=== PATIENT | male | born 1980 | race Caucasian/White ===

== ENCOUNTER 2016-09-28 09:34 | Day surgery (SDC) | payer MEDICAID ==
[2016-09-21 12:48] LABS: ABSOLUTE BASOPHILS # (AUTO) 0.1 10^3/uL (0.0-0.2); ABSOLUTE EOSINOPHILS # (AUTO) 0.2 10^3/uL (0.0-0.6); ABSOLUTE LYMPHOCYTES (AUTO) 2.9 10^3/uL (0.5-4.7); ABSOLUTE MONOCYTES (AUTO) 0.6 10^3/uL (0.1-1.4); ABSOLUTE NEUT (AUTO) 3.9 10^3/uL (1.7-8.2); BASOPHILS % (AUTO) 1.2 % (0-2); HEMATOCRIT 42.5 % (37.9-51.0); HEMOGLOBIN 14.5 g/dL (13.5-17.0); LYMPHOCYTES % (AUTO) 37.3 % (13-45); MEAN CORPUSCULAR HEMOGLOBIN 28.4 pg (27.0-33.4); MEAN CORPUSCULAR HGB CONC 34.1 g/dL (32.0-36.0); MEAN CORPUSCULAR VOLUME 83 fl (80-97); MONOCYTES % (AUTO) 8.1 % (3-13); RED CELL DISTRIBUTION WIDTH 18.1 % (11.5-14.0); SEGMENTED NEUTROPHILS % (AUTO) 50.4 % (42-78); WHITE BLOOD COUNT 7.8 10^3/uL (4.0-10.5)
[2016-09-21 12:49] LABS: APPEARANCE,URINE CLEAR; BILIRUBIN,URINE NEGATIVE (NEGATIVE); GLUCOSE, URINE NEGATIVE (NEGATIVE); KETONES,URINE NEGATIVE (NEGATIVE); LEUKOCYTE ESTERASE,URINE NEGATIVE (NEGATIVE); NITRITE,URINE NEGATIVE (NEGATIVE); PROTEIN,URINE NEGATIVE (NEGATIVE); URINE SPECIFIC GRAVITY 1.014; UROBILINOGEN,URINE NEGATIVE mg/dL (<2.0)
[2016-09-21 13:04] LABS: ANION GAP 10 (5-19); BLOOD UREA NITROGEN 10 mg/dL (7-20); CALCIUM 9.5 mg/dL (8.4-10.2); CARBON DIOXIDE 30 mmol/L (22-30); CHLORIDE 104 mmol/L (98-107); CREATININE RESULT 0.71 mg/dL (0.52-1.25); GLUCOSE 92 mg/dL (75-110); POTASSIUM 4.8 mmol/L (3.6-5.0); SODIUM 143.8 mmol/L (137-145)
--- NOTE | 2016-09-21 20:26 | EKG REPORT ---
SEVERITY:- NORMAL ECG - SINUS RHYTHM : Confirmed by: Dyllan Garza 21-Sep-2016 20:25:04
[~2016-09-28 09:34] MED LIST: BUPIVACAINE HCL 0.5 % INJ/PF 30 ML SDV ONE; DEXAMETHASONE SOD PHOSPHATE INJ 4 MG/1 ML VIAL ONE; GLYCOPYRROLATE INJ 0.4 MG/2 ML VIAL ONE; LACTATED RINGERS 1000 ML IV PRN; LIDOCAINE 2% INJ-PF (20 MG/ML) 10 ML AMPUL ONE; NEOSTIGMINE METHYLSULFATE 10 MG/10 ML VIAL ONE; ONDANSETRON HCL INJ/PF 4 MG/2 ML SDV ONE; PHENYLEPHRINE HCL INJ/PF 10 MG/1 ML SDV ONE; ROCURONIUM BROMIDE INJ 50 MG/5 ML VIAL IV ONE; SUCCINYLCHOLINE CHLORIDE INJ 200 MG/10 ML VIAL ONE; VANCOMYCIN HCL 1,000 MG in DEXTROSE 5%-WATER 250 ML IV PRN
[2016-09-28] MEDS ORDERED: ACETAMINOPHEN 100 ML IV ONE (12:13)
[2016-09-28] MEDS ORDERED: PROPOFOL INJ 200 MG/20 ML VIAL IV ONE (12:13)
[2016-09-28] MEDS ORDERED: MIDAZOLAM 2 MG/2 ML INJ ONE (12:13)
[2016-09-28] MEDS ORDERED: FENTANYL CITRATE INJ/PF 250 MCG/5 ML AMPULE ONE (12:13)
[2016-09-28] MEDS ORDERED: FENTANYL CITRATE INJ/PF 100 MCG/2 ML AMPUL ONE (12:13)
[2016-09-28] MEDS ORDERED: MORPHINE SULFATE 10 MG/ML INJ ONE (12:14)
[2016-09-28] MEDS ORDERED: HYDROMORPHONE HCL INJ/PF 2 MG/ML AMPULE ONE (12:58)
[2016-09-28] MEDS ORDERED: DIPHENHYDRAMINE HCL 50 MG/ML VIAL IV PRN (13:42)
[2016-09-28] MEDS ORDERED: PROMETHAZINE HCL INJ 25 MG/1 ML VIAL IV PRN ×2 (13:42)
[2016-09-28] MEDS ORDERED: MEPERIDINE HCL/PF INJ 25 MG/1 ML DISP.SYRIN IV PRN (13:42)
[2016-09-28] MEDS ORDERED: FENTANYL CITRATE INJ/PF 100 MCG/2 ML AMPUL IV PRN ×3 (13:42)
[2016-09-28] MEDS ORDERED: OXYCODONE-ACETAMINOPHEN 5-325 MG TABLET PO PRN (16:22)
[2016-09-28] MEDS ORDERED: HYDROMORPHONE HCL INJ/PF 2 MG/ML AMPULE IV PRN (16:22)
--- NOTE | 2016-09-28 16:22 | PDOC DISCHARGE SUMMARY ---
Discharge Summary (SDC) - Discharge Final Diagnosis: Radial Nerve Palsy Date of Surgery: 09/28/16 Discharge Date: 09/28/16 Condition: Good Treatment or Instructions: Schedule Follow Up w/ Dr. Riki Maria @ [facility] for Surgery to be seen in 10-14 days or as scheduled [place]: [place]: [place]: Keep splint clean/dry/intact. Ice and elevate Stool softener of choice when on pain medication. Prescriptions: Oxycodone HCl/Acetaminophen [Percocet 5-325 mg Tablet] 1 - 2 tab PO ASDIR PRN # 45 tablet PRN Reason: Discharge Diet: As Tolerated Respiratory Treatments at Home: Deep Breathing/Coughing Discharge Activity: No Lifting Over 10 Pounds, No Lifting/Push/Pulling Report the Following to Your Physician Immediately: Fever over 101 Degrees, Unusual Bleeding, Redness, Swelling, Warmth, Increased Soreness
--- NOTE | 2016-09-28 16:22 | Operative Report ---
Operative Report DATE OF SURGERY: 09/28/16 PREOPERATIVE DIAGNOSIS: Right Radial Nerve Palsy POSTOPERATIVE DIAGNOSIS: Same + Retained Hardware OPERATION: Radial Nerve Tendon Transfer FCR to EDC, PL to EPL, PT to ECRB, Removal Hardware Right Radial Shaft SURGEON: PATRICIA RAMSAY ANESTHESIA: GA COMPLICATIONS: None ESTIMATED BLOOD LOSS: Minimal PROCEDURE: Indication for above procedure: 36-year-old male who sustained a humeral shaft fracture. He then developed postoperative radial nerve palsy. I attempted radial nerve reconstruction with allograft but up to this point patient has failed to see recovery. Given the chronicity of his injury joint decision was made to proceed with radial nerve tendon transfers. Risks and benefits were explained to the patient, patient verbalized understanding consented for the procedure. Procedure In Detail: Patient was seen and evaluated in the preoperative holding area. The RIGHT upper extremity was initialized and marked. Patient received 2g of Ancef IV for bacterial prophylaxis. Patient was taken back to the operative room where transferred to the operative table and placed under general anesthesia. Once they were adequately anesthetized a nonsterile tourniquet was placed on the upper extremity. A surgical team debriefing was performed ensuring all instrumentation was available, the surgical procedure was discussed with possible concerns reviewed. The upper extremity was prepped with chlorhexidine and alcohol and draped in a sterile fashion. A timeout was done identifying correct patient, procedure and extremity everyone in attendance agree with this and verbalized no concerns. The extremity was exsanguinated the tourniquet was inflated to 250 mmHg. Patient's previous skin incision was utilized dorsally. Blunt dissection was performed through the soft tissues. Superficial radial nerve and radial artery were identified and the interval of the brachioradialis and the ECRL. These were protected throughout the entirety of the case. Patient's previous radius plate was adjacent to the insertion of the pronator teres. Thus it require removal. Screws removed in the plate in its entirety. Previous fracture was healed no evidence of nonunion or instability. I then curetted the screw holes. The pronator teres minor belly was identified and tracked distally at its insertion along the radial shaft. The tendon and periosteum were carefully elevated to allow enough tendon length. Unfortunately because of patient's previous radial shaft plate there was not significant periosteum to elevate. Thus a strip of the ECRL was utilized. This was sewn into the pronator teres tendon with a running Krackow suture utilizing 4-0 FiberWire. I then turned my attention to identification of the additional donor tendons. A volar skin incision was made between the FCR and palmaris longus. The palmar cutaneous branch and median nerve was identified and protected. I then released the FCR and palmaris longus is distally as possible. These were then tunneled through subcutaneous tissues to the dorsal wound. I then proceeded with identification of the recipient tendons. The 4th dorsal compartment was identified. The proximal third of the dorsal retinaculum was released well but the distal two thirds was left to allow protection against bowstringing. The EIP, EDC and EDQ were identified and tagged with a vessel loop. I then sutured the tendons to one another utilizing a 3-0 Ethibond in order to maintain cascade of the digits. EPL tendon was then identified adjacent to Bruno's tubercle and cut at the muscle tendinous junction. A transverse skin incision was made just ulnar to the anatomic snuffbox and the EPL tendon retrieved from the wound. This was then tunneled subcutaneously to the volar wound to allow better palmar abduction. The FCR tendon was then weaved into the index EDC and EIP then secured into position with a 3-0 Ethibond suture. The digits are tensioned in neutral MCP joint extension and the wrist at 20 of extension. This was then completed similarly with the EDC of the middle ring and small finger along with EDQ maintaining tension with flexion of the IP joints and extending the cascade anymore distal direction. An additional two Pulvertaft weaves were completed. With wrist range of motion was appropriate tenodesis and tensioning with wrist flexion and extension. I then turned my attention to the palmaris longus to EPL. EPL had been transposed and under maximal tension of the EPL and palmaris longus with the wrist in neutral position and the thumb and full IP extension and palmar abduction this was secured with a total of 3 Pulvertaft weaves utilizing 3-0 Ethibond suture. Once again with tenodesis was appropriate motion without significant tightening and was able to flex the thumb and adductor towards the adjacent index finger. Finally the pronator teres with the ECRL graft secured the end was Pulvertaft weaved through the ECRB at a 45 angle. Tension was set with the wrist at 45 of extension. Patient's digits rested in a neutral position with the thumb and palmar abduction once the wrist and tendon transfer was complete. I was able to easily flex the wrist down to 20 of flexion after transfer was complete. The wound was then copiously irrigated with normal saline. Tourniquet was deflated. Any peripheral vasculature is quite with bipolar cautery. Subcutaneous tissues were closed with interrupted 3-0 Monocryl suture and skin was closed with running 3-0 nylon suture. 30 mL of 0.5% Marcaine with epinephrine was injected for postoperative pain control. Wound was dressed with Xeroform 4 x 4's and soft roll. Patient was placed in a sugar tong splint with the arm and pronation and a volar splint extending to the IP joints to be the IP joints free. The wrist was placed in 30 of extension with the MCP joints at neutral and a thumb spica addition was placed maintaining palmar abduction and full IP extension. Sponge counts, instrument counts, needle counts counts were correct. Patient was then awoken from anesthesia. Transferred from the operating room table to the operating room stretcher. There was no intraoperative complications patient tolerated procedure well stable to PACU. Postoperative plan: Patient will be set up for occupational therapy 2 weeks postoperatively. At that point he is will be removed and stitches removed. He will be set up for occupational therapy to begin at 2 weeks and will be fitted for a thermoplastic splint between the IP joints free with the MCP joint at neutral and wrist at 20 of extension maintaining thumb radial abduction. The splint will be continued for 2 weeks he will begin exercises postop week #4 and continue the splint during the daytime and at night and remove it only for exercises. At 6 weeks we will begin weaning the splint.
[2016-09-28 18:14] VITALS: BP 153/94
== END 2016-09-28 18:10 | disposition home or self-care (01) ==
LOC: OROUT 09:34
PROVIDERS: ATTEND Orthopaedic Surgery
PROC: [UNRECOGNIZED PROCEDURE] (2016-09-28)
PROC: 0PPH04Z Removal of Internal Fixation Device from Right Radius, Open Approach (ICD-10-PCS; principal; 2016-09-28 11:30)
DX: G56.31 Lesion of radial nerve, right upper limb (principal); S49.90XD Unspecified injury of shoulder and upper arm, unspecified arm, subsequent encounter; S52.90XD Unspecified fracture of unspecified forearm, subsequent encounter for closed fracture with routine healing; M65.819 Other synovitis and tenosynovitis, unspecified shoulder; S42.301K Unspecified fracture of shaft of humerus, right arm, subsequent encounter for fracture with nonunion; S44.21XD Injury of radial nerve at upper arm level, right arm, subsequent encounter; X58.XXXD Exposure to other specified factors, subsequent encounter; F17.210 Nicotine dependence, cigarettes, uncomplicated
CPT/HCPCS: 93005; 36415; 85025; 80048; 81001; 71020; 93010; 20680; 64708; J2250; J3490 ×3; J1100; J3010; J1170; J2370; J0330; J2405; J7060; J2704; J3370; J0131; 1710; J2270

== ENCOUNTER 2017-12-20 00:14 | Inpatient (IN) | payer SELFPAY ==
[2017-12-13 09:21] LABS: APPEARANCE,URINE CLEAR; BILIRUBIN,URINE NEGATIVE (NEGATIVE); COLOR,URINE YELLOW; GLUCOSE, URINE NEGATIVE (NEGATIVE); KETONES,URINE NEGATIVE (NEGATIVE); LEUKOCYTE ESTERASE,URINE NEGATIVE (NEGATIVE); NITRITE,URINE NEGATIVE (NEGATIVE); PROTEIN,URINE NEGATIVE (NEGATIVE); URINE SPECIFIC GRAVITY 1.013; UROBILINOGEN,URINE NEGATIVE mg/dL (<2.0)
--- NOTE | 2017-12-13 09:29 | RADIOLOGY REPORT (SQ) ---
EXAM DESCRIPTION: CHEST PA/LATERAL COMPLETED DATE/TIME: 12/13/2017 9:20 am REASON FOR STUDY: PRE-OP COMPARISON: Chest films 01/30/2016, 09/21/2016 EXAM PARAMETERS: NUMBER OF VIEWS: two views TECHNIQUE: Digital Frontal and Lateral radiographic views of the chest acquired. RADIATION DOSE: NA LIMITATIONS: none FINDINGS: LUNGS AND PLEURA: No opacities, masses or pneumothorax. No pleural effusion. MEDIASTINUM AND HILAR STRUCTURES: No masses or contour abnormalities. HEART AND VASCULAR STRUCTURES: Heart normal size. No evidence for failure. BONES: No acute findings. HARDWARE: None in the chest. OTHER: No other significant finding. IMPRESSION: NO SIGNIFICANT RADIOGRAPHIC FINDING IN THE CHEST. TECHNICAL DOCUMENTATION: JOB ID: [id number] [employer]- All Rights Reserved Reading location - IP/workstation name: [email or web address]
[2017-12-13 10:05] LABS: HEMATOCRIT 48.8 % (37.9-51.0); HEMOGLOBIN 16.9 g/dL (13.5-17.0); MEAN CORPUSCULAR HEMOGLOBIN 30.9 pg (27.0-33.4); MEAN CORPUSCULAR HGB CONC 34.6 g/dL (32.0-36.0); MEAN CORPUSCULAR VOLUME 89 fl (80-97); PLATELET COUNT 237 10^3/uL (150-450); RED BLOOD COUNT 5.47 10^6/uL (4.35-5.55); RED CELL DISTRIBUTION WIDTH 13.2 % (11.5-14.0); WHITE BLOOD COUNT 10.2 10^3/uL (4.0-10.5)
[2017-12-13 10:36] LABS: ANION GAP 11 (5-19); BLOOD UREA NITROGEN 11 mg/dL (7-20); CALCIUM 9.5 mg/dL (8.4-10.2); CARBON DIOXIDE 28 mmol/L (22-30); CHLORIDE 104 mmol/L (98-107); GLUCOSE 86 mg/dL (75-110); POTASSIUM 4.4 mmol/L (3.6-5.0); SODIUM 142.5 mmol/L (137-145)
--- NOTE | 2017-12-13 22:50 | EKG REPORT ---
SEVERITY:- NORMAL ECG - SINUS RHYTHM : Confirmed by: Dyllan Garza 13-Dec-2017 22:50:03
[2017-12-20] MEDS ORDERED: VANCOMYCIN HCL 1,000 MG in DEXTROSE 5%-WATER 250 ML IV PRN (05:00)
[2017-12-20] MEDS ORDERED: BUPIVACAINE HCL 0.5 % INJ/PF 30 ML SDV ONE (05:45)
[2017-12-20] MEDS: LACTATED RINGERS 1000 ML IV PRN ×2 (11:50→18:21)
[2017-12-20] MEDS ORDERED: FENTANYL CITRATE INJ/PF 250 MCG/5 ML AMPULE ONE ×2 (13:28→14:06)
[2017-12-20] MEDS ORDERED: MIDAZOLAM 2 MG/2 ML INJ ONE (13:28)
[2017-12-20] MEDS ORDERED: MORPHINE SULFATE 10 MG/ML INJ ONE ×2 (13:29→14:43)
[2017-12-20] MEDS ORDERED: ACETAMINOPHEN 1,000 MG/100 ML RTUPB IV ONE ×2 (13:29→22:17)
[2017-12-20] MEDS ORDERED: PROPOFOL INJ 200 MG/20 ML VIAL IV ONE (13:29)
[2017-12-20] MEDS ORDERED: PROMETHAZINE HCL INJ 25 MG/1 ML VIAL IV PRN ×2 (14:25)
[2017-12-20] MEDS ORDERED: OXYCODONE-ACETAMINOPHEN 5-325 MG TABLET PO PRN ×2 (14:25)
[2017-12-20] MEDS ORDERED: FENTANYL CITRATE INJ/PF 100 MCG/2 ML AMPUL IV PRN ×4 (14:25→16:18)
[2017-12-20] MEDS ORDERED: MEPERIDINE HCL/PF INJ 25 MG/1 ML DISP.SYRIN IV PRN (14:25)
[2017-12-20] MEDS ORDERED: ONDANSETRON HCL INJ/PF 4 MG/2 ML SDV IV PRN ×2 (14:25→16:18)
[2017-12-20] MEDS ORDERED: DIPHENHYDRAMINE HCL 50 MG/ML VIAL IV PRN ×2 (14:25→16:17)
[2017-12-20] MEDS ORDERED: FENTANYL CITRATE INJ/PF 100 MCG/2 ML AMPUL ONE (15:04)
--- NOTE | 2017-12-20 15:53 | RADIOLOGY REPORT (SQ) ---
EXAM DESCRIPTION: FOREARM RIGHT COMPLETED DATE/TIME: 12/20/2017 3:45 pm REASON FOR STUDY: HARDWARE REMOVAL/AMPUTATION RT FOREARM G56.31 LESION OF RADIAL NERVE, RIGHT UPPER LIMB S49.90XD UNSP INJURY OF SHOULDER AND UPPER ARM, UNSP ARM, MIXON COMPARISON: 12/06/2017 FLUOROSCOPY TIME: 5 seconds 2 images saved to PACS. TECHNIQUE: Intra-operative images acquired during surgical procedure to evaluate progress. NUMBER OF IMAGES: 2 image LIMITATIONS: None. FINDINGS: Fluoroscopic images were obtained during removal of orthopedic hardware and amputation of the right forearm. Please refer to the surgeon's operative report for additional information. IMPRESSION: IMAGE(S) OBTAINED DURING PROCEDURE. COMMENT: Quality ID [id number]: Final reports for procedures using fluoroscopy that document radiation exp osure indices, or exposure time and number of fluorographic images (if radiation exposure indices are not available) Please consult full operative report of the attending physician for description of the procedure. TECHNICAL DOCUMENTATION: JOB ID: [id number] [employer]- All Rights Reserved Reading location - IP/workstation name: [email or web address]
--- NOTE | 2017-12-20 15:54 | RADIOLOGY REPORT (SQ) ---
EXAM DESCRIPTION: NO CHG FLUORO COMPLETE DATE/TIME: 12/20/2017 3:45 pm REASON FOR STUDY: HARDWARE REMOVAL/AMPUTATION RT FOREARM G56.31 LESION OF RADIAL NERVE, RIGHT UPPER LIMB S49.90XD UNSP INJURY OF SHOULDER AND UPPER ARM, UNSP ARM, MIXON FINDINGS: Please see combined report for performance of procedure and radiologic supervision and int erpretation. IMPRESSION: Please see combined report for performance of procedure and radiologic supervision and i nterpretation. Reading location - IP/workstation name: [facility]
[2017-12-20] MEDS ORDERED: ONDANSETRON 4 MG TAB.RAPDIS PO PRN (16:17)
[2017-12-20] MEDS ORDERED: OXYCODONE HCL IR 5 MG TABLET PO PRN (16:17)
--- NOTE | 2017-12-20 16:31 | Operative Report ---
Operative Report DATE OF SURGERY: 12/20/17 PREOPERATIVE DIAGNOSIS: Status post infected ORIF humeral shaft with revision fixation, both bone forearm fracture with radial nerve palsy. Nonfunctional right upper extremity POSTOPERATIVE DIAGNOSIS: Same OPERATION: Transradial right forearm amputation with targeted muscle reinnervation SURGEON: PATRICIA RAMSAY ANESTHESIA: GA TISSUE REMOVED OR ALTERED: distal forearm COMPLICATIONS: None ESTIMATED BLOOD LOSS: 25 cc PROCEDURE: Indication for above procedure: 37-year-old male who sustained a both bone forearm and ipsilateral humeral shaft fracture. 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 Patient underwent radial nerve tendon transfers without significant improvement attempts were made for therapy and conservative management. After discussing in the office recommendation for arthrodesis with FDS transfer versus tenolysis were discussed the patient requested form amputation. We discussed the postoperative expectation, outcomes and limitations of a forearm amputation patient was sent for a second opinion, psychiatric evaluation, evaluation with a carburetor repairer and support group. After extensive therapeutic intervention and discussion ultimate decision was made to proceed with operative treatment. Procedure In Detail: Patient was seen and evaluated in the preoperative holding area. The upper extremity was initialized and marked. Patient received vancomycin IV for bacterial prophylaxis. Patient was taken back to the operative room where transferred to the operative table and placed under general anesthesia. Once they were adequately anesthetized a nonsterile tourniquet was placed on the upper extremity. A surgical team debriefing was performed ensuring all instrumentation was available, the surgical procedure was discussed with possible concerns reviewed. The upper extremity was prepped with ChloraPrep and draped in a sterile fashion. A timeout was done identifying correct patient, procedure and extremity everyone in attendance agree with this and verbalized no concerns. The extremity was exsanguinated the tourniquet was inflated to 250 mmHg. The surgical incision was measured I determined with C-arm fluoroscopy given his previous fracture and hardware that 9 cm proximal to the ulnar styloid would allow adequate length, this area was marked. I then measured 2 cm distal to my planned osteotomy site and performed a fishmouth type incision. The incision was made. Any peripheral veins were coagulated with cautery. Via blunt dissection the ulnar neurovascular bundle was first identified the ulnar artery was ligaclipped. 5 cc of 0.5% Marcaine without epinephrine was injected into the ulnar nerve this was then tagged and cut. The previous ulnar plate was identified and successfully removed. I once again measured my bone cuts and osteotomy was made at the ulna with irrigation. Blunt dissection was performed along the radius the radial artery and superficial radial nerve were identified. Superficial radial nerve was injected with 5 cc 0.5% Marcaine. The radial artery was ligaclipped and cut. Once again at my planned osteotomy site the radius was osteotomized proximal to the previous plate under irrigation. The osteotomy edges were then smoothed to avoid postoperative irritation. Within the muscle of the FDS the median nerve was identified. The median nerve was injected 5 cc and tagged. Branches of the anterior and posterior interosseous nerves were identified and coagulated with cautery. The remaining musculature dorsal and volar was then incised to complete the amputation. Neuro lysis of the median nerve identified a FDS branch also neuro lysis of the ulnar nerve demonstrated a motor branch to the intrinsics. The proximal portion of the ulnar motor branch was repaired to the distal portion of the FDS motor branch with 8-0 nylon and Tisseel. I then approximated the distal aspect of the median nerve to the remaining distal aspect of the ulnar nerve with 8-0 nylon in Tisseel to attempt prophylaxis against postoperative neuroma. The wound was then copiously irrigated with normal saline and the tourniquet was deflated. Any bleeding was controlled with cautery until the wound was dry. With the drill 2 holes were placed in the ulna and radius respectively and a #2 FiberWire horizontal mattress was placed through the deep flexor muscles to provide coverage. I then reapproximated the superficial flexors and the extensors with horizontal mattress #2 FiberWire. The subcutaneous tissues were reapproximated with 3-0 Monocryl suture. Skin was closed with interrupted 3-0 nylon suture. Additional 15 cc of 0.5% Marcaine without epinephrine. Wound was dressed Xeroform or before, ABD and a soft bandage incorporating the elbow. Sponge counts, instrument counts, needle counts counts were correct. Patient was then awoken from anesthesia. Transferred from the operating room table to the operating room stretcher. There was no intraoperative complications patient tolerated procedure well stable to PACU.
[2017-12-20] MEDS ORDERED: HYDROMORPHONE HCL INJ/PF 2 MG/ML AMPULE ONE (16:47)
[2017-12-20] MEDS: KETOROLAC TROMETHAMINE INJ/PF 30 MG/1 ML SDV IV SCH (18:11)
[2017-12-20] MEDS ORDERED: ONDANSETRON HCL INJ/PF 4 MG/2 ML SDV ONE (19:40)
[2017-12-20] MEDS ORDERED: DEXAMETHASONE SOD PHOSPHATE INJ 4 MG/1 ML VIAL ONE (19:40)
[2017-12-20] MEDS: OXYCODONE-ACETAMINOPHEN 5-325 MG TABLET PO PRN (20:54)
[2017-12-20] MEDS ORDERED: PREGABALIN 75 MG CAPSULE PO SCH (22:00)
[2017-12-20] MEDS ORDERED: OXYCODONE HCL SR 10 MG TABLET PO SCH (22:00)
[2017-12-20] MEDS: HEPARIN SOD (PORCINE) 5,000 UNIT/ML 1 ML SYRINGE SUBCUT SCH (23:00)
[2017-12-21] MEDS: KETOROLAC TROMETHAMINE INJ/PF 30 MG/1 ML SDV IV SCH ×2 (00:25→05:49)
[2017-12-21] MEDS: OXYCODONE-ACETAMINOPHEN 5-325 MG TABLET PO PRN (04:02)
[2017-12-21] MEDS: HEPARIN SOD (PORCINE) 5,000 UNIT/ML 1 ML SYRINGE SUBCUT SCH (05:49)
[2017-12-21] MEDS ORDERED: LANSOPRAZOLE 30 MG TAB.RAP.DR PO SCH (06:00)
[2017-12-21 07:18] LABS: HEMATOCRIT 41.2 % (37.9-51.0); HEMOGLOBIN 14.4 g/dL (13.5-17.0); MEAN CORPUSCULAR HEMOGLOBIN 30.8 pg (27.0-33.4); MEAN CORPUSCULAR VOLUME 88 fl (80-97); PLATELET COUNT 263 10^3/uL (150-450); RED BLOOD COUNT 4.68 10^6/uL (4.35-5.55); RED CELL DISTRIBUTION WIDTH 13.1 % (11.5-14.0); WHITE BLOOD COUNT 17.3 10^3/uL (4.0-10.5)
--- NOTE | 2017-12-21 07:20 | PDOC DISCHARGE SUMMARY ---
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 Is this a current diagnosis for this admission?: Yes (3) Radial nerve injury Is this a current diagnosis for this admission?: Yes - Additional Information Discharge Diet: As Tolerated Discharge Activity: No Lifting Over 10 Pounds, No Lifting/Push/Pulling Prescriptions: Ketorolac Tromethamine [Toradol 10 mg Tablet] 10 mg PO Q8HP PRN #10 tablet PRN Reason: Gabapentin [Neurontin 300 mg Capsule] 300 mg PO Q8 #90 cap Oxycodone HCl/Acetaminophen [Percocet 10-325 Mg Tablet] 1 each PO Q6 PRN #35 tablet PRN Reason: Home Medications: Gabapentin [Neurontin 300 mg Capsule] 300 mg PO Q8 #90 cap 12/20/17 Ketorolac Tromethamine [Toradol 10 mg Tablet] 10 mg PO Q8HP PRN #10 tablet 12/20 Oxycodone HCl/Acetaminophen [Percocet 10-325 Mg Tablet] 1 each PO Q6 PRN #35 tablet 12/20/17 History of Present Illness History of Present Illness: DEANNE FERNÁNDEZ is a 37 year old male sustained a severe injury to his radial and ulnar shaft along with humeral shaft. Patient unfortunately developed radial nerve palsy postoperatively along with postoperative infection and nonunion which underwent reconstruction successfully. Unfortunately patient's radial nerve palsy persists. 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 We discussed treatment options including proceeding with arthrodesis with FDS transfer after discussing this treatment option patient was adamant about amputation. Patient was sent for second opinion, psychiatric evaluation, slabber evaluation and therapeutic meetings with [employer]. After these interventions patient continued to request amputation. After discussing postoperative expectations outcomes and decreased function patient and I made decision to proceed with operative intervention. Hospital Course Hospital Course: On 12/20/17 patient underwent transradial forearm amputation with targeted muscle reinnervation. Postoperative patient had been doing well did not require IV pain medication was taking Toradol. Had no issues overnight. Pain was controlled on postop day #1 on 12/21/17. Patient denied chest pain, shortness of breath. At that point decision was made to patient was stable for discharge at that time. Physical Exam Vital Signs: Temp Pulse Resp BP Pulse Ox 97.4 F 77 18 139/77 H 96 12/21/17 04:21 12/21/17 04:21 12/21/17 04:21 12/21/17 04:21 12/21/17 04:21 Intake & Output 12/20/17 12/21/17 12/22/17 06:59 06:59 06:59 Intake Total 1950 Output Total 1050 Balance 900 Weight 106.59 kg 102 kg General appearance: PRESENT: no acute distress, well-developed, well-nourished Head exam: PRESENT: atraumatic, normocephalic Eye exam: PRESENT: conjunctiva pink, EOMI, PERRLA. ABSENT: scleral icterus Ear exam: PRESENT: normal external ear exam Mouth exam: PRESENT: moist, tongue midline Neck exam: PRESENT: full ROM. ABSENT: carotid bruit, JVD, lymphadenopathy, thyromegaly Cardiovascular exam: PRESENT: RRR. ABSENT: diastolic murmur, rubs, systolic murmur Pulses: PRESENT: normal dorsalis pedis pul, +2 pedal pulses bilateral Vascular exam: PRESENT: normal capillary refill GI/Abdominal exam: PRESENT: normal bowel sounds, soft. ABSENT: distended, guarding, mass, organolmegaly, rebound, tenderness Rectal exam: PRESENT: deferred Musculoskeletal exam: PRESENT: other - Right upper extremity: Dressing clean/dry /intact. Patient has full shoulder and elbow range of motion. Mild tenderness along the ulnar aspect of the axilla. Neurological exam: PRESENT: alert, awake, oriented to person, oriented to place , oriented to time, oriented to situation, CN II-XII grossly intact. ABSENT: motor sensory deficit Psychiatric exam: PRESENT: appropriate affect, normal mood. ABSENT: homicidal ideation, suicidal ideation Skin exam: PRESENT: dry, intact, warm, other - Psoriatic plaques noted. ABSENT : cyanosis, rash Results Laboratory Results: 12/13/17 09:05 Impressions: Chest X-Ray 12/13/17 09:16 IMPRESSION: NO SIGNIFICANT RADIOGRAPHIC FINDING IN THE CHEST. Fluoroscopy 12/20/17 00:00 IMPRESSION: Please see combined report for performance of procedure and radiologic supervision and interpretation. Forearm X-Ray 12/20/17 00:00 IMPRESSION: IMAGE(S) OBTAINED DURING PROCEDURE. Qualifiers - * PATIENT BEING DISCHARGED WITH ANY OF THE FOLLOWING DIAGNOSIS: No VTE patient discharged on overlapping Therapy?: Yes Stroke Pt being discharged on Anti-thrombolytic therapy?: No Reason(s) for not prescribing Anti-thrombolytic therapy:: Not indicated Stroke Pt being discharged on Anti-coagulation therapy?: No Reason(s) for not prescribing Anti-coagulation therapy:: Not indicated Stroke Pt being discharged on Statins?: No Reason(s) for not prescribing Statins therapy:: Not indicated NV Pt being discharged on Aspirin therapy?: No Reason(s) for not prescribing Aspirin therapy:: Not indicated NV Pt being discharged on Statins?: No Reason(s) for not prescribing Statin therapy:: Not indicated NV Pt discharged ACEI/ARBS?: No Reason(s) for not prescribing ACEI/ARBS:: Not indicated HF Pt being discharged on ACEI for LVEF less than 40%?: No Reason(s) for not prescribing ACEI:: Not indicated HF Pt being discharged on ARBS for LVEF less than 40%?: No Reason(s) for not prescribing ARBS:: Not indicated HF Pt with Afib discharged with Warfarin?: No Reason(s) for not prescribing Warfarin:: Not indicated HF Pt discharged on evidence-based Beta Vielka:: No Reason(s) for not prescribing evidence-based Beta Vielka:: Not indicated Plan Discharge Plan: Patient did well postoperatively after transradial forearm amputation. 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 Patient will be discharged home on Percocet, Toradol and gabapentin for neuropathic pain. Patient is to call our office with any questions or concerns specifically increased redness, drainage, temperature greater than 101.5. Patient was read above instructions understood above instructions and is orthopedically stable for discharge to home.
[2017-12-21 07:52] VITALS: BP 138/92
== END 2017-12-21 08:07 | disposition home or self-care (01) | DRG 982 ==
LOC: EDSTATUS 09:00 → INOR 11:14 → 2N 11:14
PROVIDERS: ADMIT Orthopaedic Surgery; ATTEND Orthopaedic Surgery
PROC: 0X6 Anatomical Regions, Upper Extremities, Detachment (ICD-10-PCS; principal; 2017-12-20 13:00)
DX: G56.31 Lesion of radial nerve, right upper limb (principal); T81.4XXA Infection following a procedure, initial encounter; M84.421K Pathological fracture, right humerus, subsequent encounter for fracture with nonunion; F17.210 Nicotine dependence, cigarettes, uncomplicated; L40.9 Psoriasis, unspecified; Z82.49 Family history of ischemic heart disease and other diseases of the circulatory system; Z80.9 Family history of malignant neoplasm, unspecified
CPT/HCPCS: 01830; 36415; 71046; 80048; 81001; 85027; 88307; 88311; 93005; 93010; J0131; J1100; J1170; J1644; J1885; J2250; J2270; J2405; J2704; J3010; J3370; J3490; J7060; J7120